=== PATIENT | male | born 1965 | race Caucasian/White ===

== ENCOUNTER 2018-06-02 11:15 | Inpatient (IN) | payer OTHER ==
[~2018-06-02] VITALS: Ht 172.7 cm; Wt 104.3 kg
[2018-06-02] MEDS ORDERED: ATACAND PO (12:08)
[2018-06-02] MEDS ORDERED: ZOCOR20 MG PO (12:09)
[2018-06-08] MEDS ORDERED: COLACE100 MG PO (11:04)
[2018-06-08] MEDS ORDERED: CLONAZEPAM1 MG PO (11:06)
[2018-06-08] MEDS ORDERED: PERCOCET 5-3251 EACH PO (11:06)
== END 2018-06-09 14:05 | disposition home or self-care (01) | DRG 454 ==
LOC: O/R 06-08 05:15 → PED 06-08 05:15 → SURH 06-08 07:00 → PED 06-08 11:33
PROVIDERS: Orthopaedic Surgery Orthopaedic Surgery of the Spine
PROC: 0RG2071 Fusion of 2 or more Cervical Vertebral Joints with Autologous Tissue Substitute, Posterior Approach, Posterior Column, Open Approach (ICD-10-PCS; 2018-06-08)
PROC: 0RT30ZZ Resection of Cervical Vertebral Disc, Open Approach (ICD-10-PCS; 2018-06-08)
PROC: 07DS3ZZ Extraction of Vertebral Bone Marrow, Percutaneous Approach (ICD-10-PCS; 2018-06-08)
PROC: 0RG20A0 Fusion of 2 or more Cervical Vertebral Joints with Interbody Fusion Device, Anterior Approach, Anterior Column, Open Approach (ICD-10-PCS; principal; 2018-06-08 07:00)
DX: M50.01 Cervical disc disorder with myelopathy, high cervical region (principal); M47.12 Other spondylosis with myelopathy, cervical region; I10 Essential (primary) hypertension